=== PATIENT | female | born 1980 | race Caucasian/White ===

== ENCOUNTER 2019-09-01 19:49 | Emergency (ER) | payer MEDICAID ==
[~2019-09-01] VITALS: Ht 157.5 cm; Wt 68.0 kg
[2019-09-01 19:58] VITALS: Ht 157.5 cm; Wt 68.0 kg
[2019-09-02 00:10] VITALS: BP 135/75
== END 2019-09-02 00:10 | disposition home or self-care (01) ==
LOC: ED 19:49
DX: S02.2XXA Fracture of nasal bones, initial encounter for closed fracture (principal); F10.129 Alcohol abuse with intoxication, unspecified; J45.909 Unspecified asthma, uncomplicated; S30.811A Abrasion of abdominal wall, initial encounter; Y04.8XXA Assault by other bodily force, initial encounter; Y93.89 Activity, other specified; Y92.89 Other specified places as the place of occurrence of the external cause; Y99.8 Other external cause status
CPT/HCPCS: 90715; 99406